=== PATIENT | female | born 1995 | race Two or more races ===

== ENCOUNTER 2021-07-26 00:17 | Outpatient (CLI) | payer OTHER | END 2021-07-26 00:45 | disposition home or self-care (01) | LOC: NST 00:17 | PROVIDERS: ATTEND Obstetrics & Gynecology | DX: Z34.83 Encounter for supervision of other normal pregnancy, third trimester (principal) ==

== ENCOUNTER 2021-09-20 11:09 | Outpatient (CLI) | payer OTHER | END 2021-09-20 20:43 | disposition home or self-care (01) | LOC: OBS/DEL 11:09 → NST 11:09 → OBS/DEL 12:30 | PROVIDERS: ATTEND Specialist | DX: O24.419 Gestational diabetes mellitus in pregnancy, unspecified control (principal); O23.43 Unspecified infection of urinary tract in pregnancy, third trimester; N39.0 Urinary tract infection, site not specified; Z3A.36 36 weeks gestation of pregnancy ==

== ENCOUNTER 2021-09-30 08:13 | Outpatient (CLI) | payer OTHER | END 2021-09-30 09:37 | disposition home or self-care (01) | LOC: PRENATAL 08:13 | PROVIDERS: ATTEND Obstetrics & Gynecology Maternal & Fetal Medicine | DX: O26.849 Uterine size-date discrepancy, unspecified trimester (principal); O36.8199 Decreased fetal movements, unspecified trimester, other fetus; O24.419 Gestational diabetes mellitus in pregnancy, unspecified control ==

== ENCOUNTER 2021-10-17 07:13 | Inpatient (IN) | payer OTHER ==
[~2021-10-17] VITALS: Ht 149.9 cm; Wt 56.7 kg
[2021-10-18] MEDS ORDERED: FUSION PLUS CA1 EACH (13:33)
== END 2021-10-20 20:42 | disposition home or self-care (01) | DRG 768 ==
LOC: NST 07:13 → OB/GYN 07:21 → LDR 07:21 → OB/GYN 17:19
PROVIDERS: ADMIT Specialist; ATTEND Specialist
PROC: 10E0XZZ Delivery of Products of Conception, External Approach (ICD-10-PCS; principal; 2021-10-17)
PROC: 4A1HXCZ Monitoring of Products of Conception, Cardiac Rate, External Approach (ICD-10-PCS; 2021-10-17)
PROC: 0DQR0ZZ Repair Anal Sphincter, Open Approach (ICD-10-PCS; 2021-10-17)
PROC: 0W8NXZZ Division of Female Perineum, External Approach (ICD-10-PCS; 2021-10-17)
DX: O70.21 Third degree perineal laceration during delivery, IIIa (principal); Z37.0 Single live birth; Z20.822 Contact with and (suspected) exposure to COVID-19; Z3A.37 37 weeks gestation of pregnancy

== ENCOUNTER 2022-12-19 14:50 | Inpatient (IN) | payer OTHER ==
[~2022-12-19] VITALS: Ht 149.9 cm; Wt 59.0 kg
[~2022-12-19 14:50] MED LIST: FUSION PLUS CA1 EACH
== END 2022-12-21 15:40 | disposition home or self-care (01) | DRG 807 ==
LOC: OB/GYN 14:50 → LDR 14:50 → OB/GYN 20:38
PROVIDERS: ADMIT Specialist; ATTEND Specialist
PROC: 10E0XZZ Delivery of Products of Conception, External Approach (ICD-10-PCS; principal; 2022-12-19)
PROC: 0HQ9XZZ Repair Perineum Skin, External Approach (ICD-10-PCS; 2022-12-19)
PROC: 4A1HXCZ Monitoring of Products of Conception, Cardiac Rate, External Approach (ICD-10-PCS; 2022-12-19)
DX: O70.1 Second degree perineal laceration during delivery (principal); Z37.0 Single live birth; O99.824 Streptococcus B carrier state complicating childbirth; Z3A.37 37 weeks gestation of pregnancy; Z20.822 Contact with and (suspected) exposure to COVID-19

== ENCOUNTER 2024-11-09 09:52 | Emergency (ER) | payer OTHER ==
[~2024-11-09] VITALS: Ht 149.9 cm; Wt 58.1 kg
[2024-11-09 11:28] LABS: BASO % 0.6 % (0.1-1.2); EOS # 0.08 (0.04-0.54); EOS % 1.3 % (0.7-7.0); HEMATOCRIT 36.5 % (34.1-44.9); HEMOGLOBIN 12.3 g/dL (11.2-15.7); LYMPH % 30.6 % (19.3-53.1); MONO # 0.38 (0.24-0.82); MONO % 6.1 % (4.7-12.5); NEUT # 3.79 (1.56-6.13); NEUT % 61.2 % (34.0-71.1); PLATELET COUNT 268 K/uL (163-369); RED CELL DISTRIBUTION WIDTH 13.1 % (11.6-14.4)
[2024-11-09 11:48] LABS: PH,URINE 7.5 (5.0-8.0); URINE APPEARANCE Cloudy; URINE BILIRRUBIN Negative (NEGATIVE); URINE BLOOD Large; URINE COLOR Red; URINE GLUCOSE Negative (NEGATIVE); URINE KETONE Negative (NEGATIVE); URINE LEUKOCYTE Trace; URINE NITRATE Negative; URINE PROTEIN Trace (NEGATIVE)
[2024-11-09 11:52] LABS: URINE BACTERIA 214.1 uL (0.0-1933); URINE EPITHELIAL CELLS 9.3 uL (0.0-38.8); URINE WBC 27.5 uL (0.0-23.2)
[2024-11-09 12:20] LABS: URINE CAST 0.14 uL (0.0-1.40); URINE RBC > 10558.9 uL (0.0-20.8)
[2024-11-09 12:24] LABS: ALBUMIN 3.7 gm/dL (3.4-5.0); BILIRUBIN TOTAL 0.83 mg/dL (0.3-1.2); CALCIUM 8.6 mg/dL (8.5-10.1); CREATININE SERUM 0.54 mg/dL (0.55-1.02); GFR 132.56; GLOBULINA 3.6 G/DL (2.4-3.5); POTASSIUM 4.06 mEq/L (3.5-5.1); TOTAL PROTEIN 7.3 gm/dL (6.4-8.2)
== END 2024-11-09 13:24 | disposition home or self-care (01) ==
LOC: ER 10:52
PROVIDERS: General Practice
DX: N93.8 Other specified abnormal uterine and vaginal bleeding (principal); Z91.011 Allergy to milk products